=== PATIENT | female | born 1970 | race Caucasian/White ===

== ENCOUNTER 2017-07-10 13:36 | Emergency (ER) | payer MEDICARE, MEDICAID | END 2017-07-10 14:30 | disposition left against medical advice (07) | LOC: JP.ED 13:36 | DX: Z53.21 Procedure and treatment not carried out due to patient leaving prior to being seen by health care provider (principal) | CPT/HCPCS: 99281 ==

== ENCOUNTER 2020-05-28 02:20 | Emergency (ER) | payer MEDICARE, MEDICAID ==
[2020-05-28 02:41] VITALS: BP 128/81; PULSE 83
--- NOTE | 2020-05-28 02:57 | EDM.PDOCBH ---
ED HPI GENERAL MEDICAL PROBLEM - General Chief Complaint: Drug or Alcohol Abuse Stated Complaint: [facility] Time Seen by Provider: 05/28/20 02:45 Source of Information: Reports: Patient, EMS History Limitations: Reports: Altered Mental Status - History of Present Illness INITIAL COMMENTS - FREE TEXT/NARRATIVE: 49 year old female wandering the streets after being at the bar. Brought in by EMS due to apparent confusion, agitation. No complaints from the patient. Apparently they found her wandering around in some trees, she claims she went into the trees to go to the bathroom. When she first arrived she was very spastic and agitated but calmed down fairly quickly. She said she went to the bar to have a double drink before they closed. Onset: Unknown/Unsure Associated Symptoms: Reports: Confusion, Other (Agitation, rambling speech). Denies: Chest Pain, Nausea/Vomiting, Shortness of Breath denies Pain Score (Numeric/FACES): 0 - Related Data Allergies Allergy/AdvReac Type Severity Reaction Status Date / Time No Known Allergies Allergy Verified 05/28/20 02:32 Home Meds: Home Meds Gabapentin 300 mg PO TID 05/23/15 [History] clonazePAM [Clonazepam] 0.5 mg PO DAILY PRN 05/23/15 [History] Methylphenidate [Ritalin] 20 mg PO DAILY 09/30/16 [History] Past Medical History HEENT History: Reports: Other (See Below) Other HEENT History: poor dentition Cardiovascular History: Reports: Hypertension, Other (See Below) Other Cardiovascular History: endocarditis, mitral regurgitation, tricuspid regurgitation Gastrointestinal History: Reports: GERD Genitourinary History: Reports: Acute Renal Failure Other Genitourinary History: urine incontinence. [employer] History: Reports: Musculoskeletal History: Reports: Fracture Other Musculoskeletal History: arm Neurological History: Reports: Other (See Below) Other Neuro History: multiple brain abscesses Psychiatric History: Reports: ADD, ADHD, Addiction, Anxiety, Depression, OCD Dermatologic History: Reports: Other (See Below) Other Dermatologic History: ulcers of both legs - Infectious Disease History Infectious Disease History: Reports: Other (See Below) Other Infectious Disease History: MSSA - Past Surgical History Musculoskeletal Surgical History: Reports: Other (See Below) Social & Family History - Tobacco Use Smoking Status *Q: Current Every Day Smoker Years of Tobacco use: 24 Packs/Tins Daily: 1 Used Tobacco, but Quit: No Second Hand Smoke Exposure: Yes - Caffeine Use Caffeine Use: Reports: Coffee, Soda - Alcohol Use Days Per Week of Alcohol Use: 0 - Recreational Drug Use Recreational Drug Use: Yes Recreational Drug Type: Reports: Marijuana/Hashish Recreational Drug Use Frequency: Socially ED ROS GENERAL - Review of Systems Review Of Systems: See Below Constitutional: Denies: Fever, Chills, Decreased Appetite HEENT: Reports: Other (Advanced dental decay) Respiratory: Denies: Shortness of Breath, Cough Cardiovascular: Denies: Chest Pain GI/Abdominal: Denies: Nausea, Vomiting Neurological: Denies: Headache ED EXAM, BEHAVIORAL HEALTH - Physical Exam Exam: See Below Exam Limited By: No Limitations General Appearance: Alert, Anxious Eye Exam: Bilateral Eye: Other (No jaundice, hydration appears normal) Head: Atraumatic Respiratory/Chest: No Respiratory Distress Cardiovascular: Regular Rate, Rhythm. No: Tachycardia Extremities: No: Pedal Edema Neurological: Alert Psychiatric: Restless, Agitated Skin Exam: Warm, Dry COURSE, BEHAVIORAL HEALTH COMP - Course Vital Signs: Last Vital Signs Temp 97.4 F 05/28/20 02:30 Pulse 83 05/28/20 02:30 Resp 16 05/28/20 02:30 BP 128/81 05/28/20 02:30 Pulse Ox 97 05/28/20 02:30 Orders, Labs, Meds: Laboratory Tests 05/28/20 05/28/20 05/28/20 Range/Units 03:11 03:11 03:11 WBC 7.8 (4.5-11.0) K/uL RBC 4.89 (3.30-5.50) M/uL Hgb 14.2 (12.0-15.0) g/dL Hct 43.3 (36.0-48.0) % MCV 89 (80-98) fL MCH 29 (27-31) pg MCHC 33 (32-36) % Plt Count 226 (150-400) K/uL Neut % (Auto) 46 (36-66) % Lymph % (Auto) 37 (24-44) % [place] % (Auto) 9 H (2-6) % Eos % (Auto) 7 H (2-4) % Baso % (Auto) 1 (0-1) % Sodium 142 (140-148) mmol/L Potassium 3.4 L (3.6-5.2) mmol/L Chloride 105 (100-108) mmol/L Carbon Dioxide 25 (21-32) mmol/L Anion Gap 15.4 H (5.0-14.0) mmol/L BUN 15 (7-18) mg/dL Creatinine 1.0 (0.6-1.0) mg/dL Est Cr Clr Drug Dosing 59.89 mL/min Estimated GFR (MDRD) 58 L (>60) Glucose 98 (74-106) mg/dL Calcium 8.9 (8.5-10.1) mg/dL Urine Opiates Screen Negative (NEGATIVE) Ur Oxycodone Screen Negative (NEGATIVE) Urine Methadone Screen Negative (NEGATIVE) Ur Propoxyphene Screen Negative (NEGATIVE) Ur Barbiturates Screen Negative (NEGATIVE) Ur Tricyclics Screen Negative (NEGATIVE) Ur Phencyclidine Scrn Negative (NEGATIVE) Ur Amphetamine Screen Negative (NEGATIVE) U Methamphetamines Scrn Negative (NEGATIVE) Urine MDMA Screen Negative (NEGATIVE) U Benzodiazepines Scrn Negative (NEGATIVE) U Cocaine Metab Screen Negative (NEGATIVE) U Marijuana (THC) Screen Negative (NEGATIVE) Ethyl Alcohol mg/dL 05/28/20 Range/Units 03:11 WBC (4.5-11.0) K/uL RBC (3.30-5.50) M/uL Hgb (12.0-15.0) g/dL Hct (36.0-48.0) % MCV (80-98) fL MCH (27-31) pg MCHC (32-36) % Plt Count (150-400) K/uL Neut % (Auto) (36-66) % Lymph % (Auto) (24-44) % [place] % (Auto) (2-6) % Eos % (Auto) (2-4) % Baso % (Auto) (0-1) % Sodium (140-148) mmol/L Potassium (3.6-5.2) mmol/L Chloride (100-108) mmol/L Carbon Dioxide (21-32) mmol/L Anion Gap (5.0-14.0) mmol/L BUN (7-18) mg/dL Creatinine (0.6-1.0) mg/dL Est Cr Clr Drug Dosing mL/min Estimated GFR (MDRD) (>60) Glucose (74-106) mg/dL Calcium (8.5-10.1) mg/dL Urine Opiates Screen (NEGATIVE) Ur Oxycodone Screen (NEGATIVE) Urine Methadone Screen (NEGATIVE) Ur Propoxyphene Screen (NEGATIVE) Ur Barbiturates Screen (NEGATIVE) Ur Tricyclics Screen (NEGATIVE) Ur Phencyclidine Scrn (NEGATIVE) Ur Amphetamine Screen (NEGATIVE) U Methamphetamines Scrn (NEGATIVE) Urine MDMA Screen (NEGATIVE) U Benzodiazepines Scrn (NEGATIVE) U Cocaine Metab Screen (NEGATIVE) U Marijuana (THC) Screen (NEGATIVE) Ethyl Alcohol 194 mg/dL Re-Assessment/Re-Exam: Urine drug screen, CBC, BMP and EtOH were obtained. Patient slowly improved. CBC and BMP were basically normal, EtOH was 0.192. Urine drug screen was negative. Patient continued to rapidly improve, was carrying on a normal conversation but still acting somewhat agitated. She was insistent that she could walk home which was only a couple blocks away. Departure - Departure Time of Disposition: 04:19 Disposition: Home, Self-Care 01 Clinical Impression: Alcohol intoxication Qualifiers: Complication of substance-induced condition: uncomplicated Qualified Code(s): F10.920 - Alcohol use, unspecified with intoxication, uncomplicated - Discharge Information Instructions: Alcohol Intoxication, [id number] Referrals: PCP,None [Primary Care Provider] - Forms: ED Department Discharge Care Plan Goals: Avoid drinking so much alcohol so rapidly in the future. Take all your prescribed medications as directed. I would recommend follow-up with your primary care provider in the near future for your yearly physical and reevaluation of your medications. Return to the emergency room at any time if worsening or concerns. Sepsis Event Note (ED) - Evaluation Sepsis Screening Result: No Definite Risk - Focused Exam Vital Signs: Vital Signs Temp Pulse Resp BP Pulse Ox 05/28/20 02:30 97.4 F 83 16 128/81 97
== END 2020-05-28 04:00 | disposition home or self-care (01) ==
LOC: JP.ED 02:20
DX: F10.120 Alcohol abuse with intoxication, uncomplicated (principal); I10 Essential (primary) hypertension; F90.9 Attention-deficit hyperactivity disorder, unspecified type; F41.9 Anxiety disorder, unspecified; F32.9 Major depressive disorder, single episode, unspecified; F17.210 Nicotine dependence, cigarettes, uncomplicated; Z79.899 Other long term (current) drug therapy
CPT/HCPCS: 36415; 80048; 80305-QW; 80307; 85025; 99282; 99285

== ENCOUNTER 2022-10-27 06:30 | Day surgery (SDC) | payer MEDICARE, MEDICAID ==
[2022-10-27] MEDS ORDERED: Lactated Ringers 1,000 ML IV SCH (07:00)
[2022-10-27] MEDS ORDERED: fentaNYL 50 MCG/ML SDV ONE (07:21)
[2022-10-27] MEDS ORDERED: Propofol 200 MG/20 ML SDV ONE (07:21)
[2022-10-27] MEDS ORDERED: Midazolam 1 MG/ML 2 ML SDV ONE (07:21)
[2022-10-27 08:50] VITALS: BP 105/69; PULSE 74
== END 2022-10-27 09:10 | disposition home or self-care (01) ==
LOC: JP.SDS 06:30
PROVIDERS: ATTEND Student in an Organized Health Care Education/Training Program
DX: Z12.11 Encounter for screening for malignant neoplasm of colon (principal); K62.1 Rectal polyp; I10 Essential (primary) hypertension; Z79.899 Other long term (current) drug therapy
CPT/HCPCS: 45380; 88305; J2250; J2704; J3010; J7120

== ENCOUNTER 2023-01-19 01:51 | Emergency (ER) | payer MEDICARE, MEDICAID ==
[2023-01-19 02:11] VITALS: BP 141/80; PULSE 74
[2023-01-19 02:26] LABS: ESTIMATED GFR 67 mL/min (>60)
[2023-01-19] MEDS ORDERED: Potassium Chloride 20 MEQ Tab.ER PO ONE (02:28)
== END 2023-01-19 08:32 | disposition home or self-care (01) ==
LOC: JP.ED 01:51
DX: F10.920 Alcohol use, unspecified with intoxication, uncomplicated (principal); E87.6 Hypokalemia; N30.00 Acute cystitis without hematuria; Y90.8 Blood alcohol level of 240 mg/100 ml or more; I10 Essential (primary) hypertension; Z79.899 Other long term (current) drug therapy
CPT/HCPCS: 36415; 80053; 80305-QW; 80307; 81001; 85025; 99284; A9270-GY